=== PATIENT | female | born 1950 | race Caucasian/White ===

== ENCOUNTER 2024-04-12 06:50 | Outpatient (OUT) | payer MEDICARE, SELFPAY ==
--- NOTE | 2024-04-12 06:54 | MR_ITS ---
[address] [address] Patient Name: CATRINA JACOBS MRN: [id number] date: 1950 Sex: F Assigned Patient Location: MRI Current Patient Location: MRI Accession/Order Number: [id number] Exam Date: 04/12/2024 07:09 Report Date: 04/12/2024 17:00 At the request of: ESTEFANÍA VARELA Procedure: MR head/brain wo con MRI BRAIN WITHOUT CONTRAST, 04/12/2024. HISTORY: Memory loss. COMPARISON: None. TECHNIQUE: Multiplanar, multisequence MRI imaging of the brain without contrast. FINDINGS: The paranasal sinuses are clear. Mastoid air cells clear. Nasopharynx normal. [employer] spaces are normal. Prior cataract surgery. No hydrocephalus. There is mild generalized brain atrophy. No extraaxial fluid collection. No mass effect. No shift of midline. Very mild chronic microvascular changes in the cerebral white matter. Diffusion images are normal. No acute infarction. T2 gradient images show no hemorrhagic lesions. No intracranial masses. MR/MR head/brain wo con IMPRESSION: 1. There is mild age-appropriate brain atrophy and very mild chronic microvascular changes in the cerebral white matter. 2. No acute infarction. No masses. 3. No hydrocephalus. Electronically authenticated by: FERNANDO OBRIEN Date: 04/12/2024 17:00
== END 2024-04-12 06:51 | disposition home or self-care (01) ==
LOC: MRI 06:50
PROVIDERS: Visit Provider Psychiatry & Neurology Neurology
DX: R41.3 Other amnesia (principal)
CPT/HCPCS: 70551